=== PATIENT | male | born 1960 | race Caucasian/White ===

== ENCOUNTER → 2017-09-19 | Outpatient (CLI) | payer OTHER ==
[~2017-09-19] MED LIST: ASPI-999 PO
== END ==
LOC: CARD 12:19
PROVIDERS: ATTEND Internal Medicine Cardiovascular Disease
DX: R55 Syncope and collapse (principal); R94.31 Abnormal electrocardiogram [ECG] [EKG]; R00.2 Palpitations
CPT/HCPCS: 93306; 93351

== ENCOUNTER 2017-09-26 11:36 | Day surgery (SDC) | payer OTHER ==
[~2017-09-26] VITALS: Ht 182.9 cm; Wt 88.5 kg
[2017-09-26] VITALS (11 sets, daily range): BP systolic 95–121; BP diastolic 61–79
[2017-09-26] MEDS ORDERED: HEParin (CATH LAB) 2,000 ML IV ONE (11:52)
[2017-09-26] MEDS ORDERED: NS IV 1000 ML 1,000 ML ONE (11:52)
--- OUTSIDE RECORDS SUMMARY | 2017-09-26 11:57 | XMS REPORT ---
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 Medications Not available. Problem List Not available. Vital Signs Date Time BP-Sys(mm[Hg] BP-Cielo(mm[Hg]) HR(bpm) RR(rpm) Temp WT HT HC BMI BSA BMI Percentile O2 Sat(%) 09/29/2015 2:49:00 PM 122 mmHg 70 mmHg 78 bpm 18 rpm 97.3 F 202 lbs 72 in 27.40 kg/m2 2.16 m2 98 % Social History Name Description Comments Alcohol Use Never Tobacco use Never Uses seatbelts Current every day History of Procedures Not available. Results Summary Not available. History Of Immunizations Not available. History of Past Illness Name Date of Onset Comments No significant medical history DOT Physical Sep 29 2015 2:49PM Payers Not available. History of Encounters Visit Date Visit Type Provider 09/29/2015 Office visit ALEJANDRO VELARDE
[2017-09-26 12:21] LABS: HEMOGLOBIN 13.6 G/DL (13.3-17.7); MEAN PLATELET VOLUME 9.7 FL (7.4-10.4); RED BLOOD COUNT 4.25 10^6/uL (4.35-5.85); RED CELL DISTRIBUTION WIDTH 12.6 % (10.0-14.5); WHITE BLOOD COUNT 5.9 10^3/uL (4.3-11.0)
[2017-09-26] MEDS ORDERED: NS IV 1000 ML 1,000 ML IV SCH ×2 (12:30→14:08)
[2017-09-26 12:38] LABS: ALANINE AMINOTRANSFERASE 17 U/L (0-55); ALBUMIN 4.6 GM/DL (3.2-4.5); ALKALINE PHOSPHATASE 57 U/L (40-136); BILIRUBIN,TOTAL 0.8 MG/DL (0.1-1.0); BUN/CREATININE RATIO 14; CALCIUM 9.7 MG/DL (8.5-10.1); CARBON DIOXIDE 27 MMOL/L (21-32); CHLORIDE 105 MMOL/L (98-107); CHOLESTEROL 194 MG/DL (< 200); CREATININE SERUM 0.98 MG/DL (0.60-1.30); GFR ESTIMATED > 60; GLUCOSE 88 MG/DL (70-105); HDL CHOLESTEROL 49 MG/DL (40-60); POTASSIUM 3.9 MMOL/L (3.6-5.0); SODIUM 139 MMOL/L (135-145); TOTAL PROTEIN 7.3 GM/DL (6.4-8.2); TRIGLYCERIDES 95 MG/DL (<150); VLDL CHOLESTEROL 19 MG/DL (5-40)
[2017-09-26] MEDS ORDERED: MIDAZOLAM 5 MG/5 ML (VERSED) VIAL ONE (12:52)
[2017-09-26] MEDS ORDERED: LIDOCAINE 1% INJ 20 ML 20 ML VIAL ONE (12:52)
[2017-09-26] MEDS ORDERED: fentaNYL INJECTION 100 MCG/2 ML AMP ONE (12:52)
[2017-09-26] MEDS ORDERED: diphenhydrAMINE 50 MG/ML INJ (BENADRYL) ONE (12:52)
[2017-09-26] MEDS ORDERED: NS IV 1000 ML 1,000 ML IV ONE (13:00)
--- NOTE | 2017-09-26 13:22 | Cardiac Procedure Note-CS/ASA ---
Pre-Procedure Note Pre-Op Procedure Note H&P Reviewed The H&P was reviewed, patient examined and no changes noted. Date H&P Reviewed: September 26, 2017 Time H&P Reviewed: 13:21 Conscious Sedation Pre-Proced Time Reviewed: 13:21 ASA Class: 3 Airway Mallampati Classification: ([place] appropriate class) I. II. III, IV Lungs Heart ASA score ASA 1: a normal healthy patient ASA 2: a patient with a mild systemic disease (mid diabetes, controlled hypertension, obesity ASA 3: a patient with a severe systemic disease that limits activity (angina , COPD, prior Myocardial infarction) ASA 4: a patient with an incapacitating disease that is a constant threat to life (CHF, renal failure) ASA 5: a moribund patient not expected to survive 24 hrs. (ruptured aneurysm) ASA 6: a declared brain patient whose organs are being harvested. For emergent operations, add the letter E after the classification Grade 2 Sedation Plan: Analgesia, Amnesia, Plan communicated to team members, Discussed options with patient/fam, Discussed risks with patient/fam Note The patient is an appropriate candidate to undergo the planned procedure, sedation, and anesthesia. The patient immediately re-assessed prior to indication. VALERY STEVEN MD FACP FAC CCDS September 26, 2017 13:22
--- NOTE | 2017-09-26 14:10 | Discharge Inst-Post CATH ---
Discharge Inst-CATH Post Cardiac Cath D/C Inst Follow Up/Plan F/u with Dr Jovel in 1-2 weeks CARDIAC CATH DISCHARGE INSTRUCTIONS *Hold Metformin for 48 hours post heart cath. ACTIVITY * Go Home directly and rest. * Limit activity of the leg (or wrist if it was used) for 7 days including aerobics, swimming, jogging, bicycling, etc. * Restrict stair-climbing for 7 days if possible, if not, climb up with your non -cath leg, then bring together on the same step. * Avoid lifting, pushing, pulling or excessive movement of the affected extremity for 7 days. * Customary sexual activity may be resumed after 2 days-use caution not to use a position that strains or causes pain to the affected extremity. * No driving for 24 hours. * NO SMOKING. * Avoid straining for bowel movements for 7 days. * Gentle walking on level ground is allowed. * Returning to work will depend on the type of procedure and the results. Your doctor will discuss this with you. CALL YOUR DOCTOR FOR ANY OF THE FOLLOWING: *If bleeding from the puncture site occurs- Apply gentle pressure to site with clean cloth and call your doctor or EMS. * If a knot or lump forms under the skin, increases in size, or causes pain. * If bruising appears to be worsening or moving further down your leg instead of disappearing. * Temperature above 101 F. CARE OF YOUR GROIN INCISION; * Bruising or purple discoloration of the skin near the puncture site is common. * You may shower only, no bathtub bathing for 5 days. Be careful to avoid slipping as your leg may feel stiff. * If a closure device was used on your femoral artery, please see the attached guide regarding care of the device and your leg. * REMOVE the dressing from your groin the next day after your procedure in the shower. CARE OF YOUR WRIST INCISION; * Bruising or purple discoloration of the skin near the puncture site is common. * You may shower. * DO NOT submerge wrist. * Remove dressing in 24 hours. VALERY JOVEL MD [facility] CCDS September 26, 2017 14:10
[2017-09-26] MEDS ORDERED: ASPI-999 PO (14:14)
[2017-09-26] MEDS ORDERED: PATIENT MAY USE OWN MEDS, ALL PO SCH (14:15)
--- NOTE | 2017-09-26 14:15 | Discharge Inst-Cardiology ---
Discharge Inst-Cardiac Discharge Medications New Medications: Aspirin (Aspirin) 81 Mg Tab.chew 81 MG PO DAILY, #90 TAB 3 Refills VALERY STEVEN MD FACP FAC CCDS September 26, 2017 14:14
--- NOTE | 2017-09-26 16:08 | CARDIAC CATHETERIZATION ---
DATE OF SERVICE: 09/26/2017 PRIMARY CARE PHYSICIAN: Dr. Hinton The patient is a 56-year-old man who has had a history of palpitations. He recently had an abnormal stress test in which he had exercise-induced frequent premature ventricular contractions and ventricular couplets. Cardiac catheterization was carried out today after having obtained an informed consent. PROCEDURE: He was brought to the cardiac catheterization laboratory in a fasting state. Right groin was prepared and draped in the usual sterile fashion. Lidocaine 1% with local anesthesia. Modified Seldinger technique was used to advance a 5-Israeli sheath into the right femoral artery. We used a 5-Israeli JL4 catheter for left coronary angiography and a 5-Israeli JR4 catheter for right coronary angiography. We used a pigtail catheterization for left heart catheterization and left ventricular angiography. Pigtail catheter was pulled back to the aortic root and aortic root angiography was performed. He tolerated the procedure well. Angiography of the right femoral artery had been carried out through the sheath at the beginning of the procedure. At the end of the procedure, Mynx was used to achieve hemostasis following sheath removal. He tolerated the procedure well. HEMODYNAMICS: Left ventricular end-diastolic pressure following coronary angiography was 10 mmHg. There was no significant pressure gradient on pullback across the aortic valve. The ascending aortic pressure was 104/59 with a mean of 79 mmHg. LEFT VENTRICULAR ANGIOGRAPHY: Left ventricular angiography was carried out in the right anterior oblique projection. Global left ventricular systolic function was normal. No regional wall motion abnormality is seen. Left ventricular ejection fraction is approximately 55%. There is no significant mitral regurgitation. CORONARY ANGIOGRAPHY: Left main coronary artery is free of significant disease. Left anterior descending artery is free of significant disease. The left circumflex artery is free of significant disease. Right coronary artery is dominant and free of significant disease. AORTIC ROOT ANGIOGRAPHY: Aortic root angiography did not indicate any ascending aortic aneurysm or dissection. In the initial part of the angiogram, the catheter was prolapsing through the aortic valve and some aortic regurgitation was seen. When the catheter was pulled back into the aortic root, there was no aortic regurgitation. CONCLUSION: 1. No angiographically significant coronary artery disease. 2. Normal global left ventricular systolic function with an ejection fraction of approximately 55%. 3. Normal left ventricular end-diastolic pressure. 4. No evidence of ascending aortic enlargement or dissection. DISCUSSION AND RECOMMENDATIONS: Based on the results of the study, it appears appropriate to continue a conservative approach. Risk factor modification has been reviewed. Outpatient followup is advised. Job ID: [id number] DocumentID: [id number] Dictated Date: 09/26/2017 13:49:50 [employer] Sales Manager Date: 09/26/2017 16:07:09 Dictated By: VALERY STEVEN MD, MA, FACP, FACC, MTDD
== END 2017-09-26 17:45 | disposition home or self-care (01) ==
LOC: RAD 11:36 → SURG 14:07 → CARD 17:45
PROVIDERS: ATTEND Internal Medicine Cardiovascular Disease
DX: R00.2 Palpitations (principal); R55 Syncope and collapse
CPT/HCPCS: 36415; 80053; 80061; 85027; 85610; 85730; 87081; 93458; 93567